=== PATIENT | female | born 1985 | race Caucasian/White ===

== ENCOUNTER 2023-06-27 13:18 | Emergency (ER) | payer SELFPAY ==
[2023-06-27 13:58] VITALS: BP 127/71; PULSE 90; RESP 18; TEMP 36.7; O2SAT 100
--- NOTE | 2023-06-27 14:04 | ED.EAR ---
HPI - Ear Problem General Chief complaint: Ear Stated complaint: right ear pain Time Seen by Provider: 06/27/23 14:04 Focused HPI: This is a 38 year old female that presents to the ER for right ear pain. Worsening over the last couple of days. Reports extensive history with infection in this ear and previous surgery. She does not have an ENT doctor currently. Denies fever, drainage. GENERAL: Well-appearing, well-nourished, and in no acute distress. HEAD: Normocephalic, atraumatic. ENT: Right cerumen impaction CHEST: Clear to auscultation. ?No respiratory distress. HEART: Regular rate and rhythm.? NEURO: ?Alert and oriented x3. Patient screened in triage and initial orders placed.? ?Additional care and disposition to be based upon?diagnostic testing and treatment. Related Data Allergies Allergy/AdvReac Type Severity Reaction Status Date / Time amoxicillin [From Augmentin] Allergy Chest Pain Verified 06/27/23 13:59 clavulanic acid Allergy Chest Pain Verified 06/27/23 13:59 [From Augmentin] Review of Systems Review of Systems: All systems reviewed & are unremarkable except as noted in HPI and below Constitutional: Constitutional: Denies fever(s) ENT: Comments: Reports otalgia. Denies drainage PMFSH Past Medical History Medical History (Updated 06/27/23 @ 15:49 by Ana Goode PA-C) No active medical problems Social History Social History (Updated 06/27/23 @ 15:49 by Ana Goode PA-C) Substance use: never Exam Const: General: healthy appearing and no acute distress HENMT: Ears: external ears normal, Abnormal EAC present (right) erythema and edema and TM abnormal (right) wth effusion and erythematous Course Course Emergency Course: Patient agrees with plan of care Vital Signs Vital signs: Vital Signs Temperature 98.1 F 06/27/23 13:58 Pulse Rate 90 06/27/23 13:58 Respiratory Rate 18 06/27/23 13:58 Blood Pressure 127/71 06/27/23 13:58 Pulse Oximetry 100 06/27/23 13:58 Temperature 98.1 F 06/27/23 13:58 Pulse Rate 90 06/27/23 13:58 Respiratory Rate 18 06/27/23 13:58 Blood Pressure 127/71 06/27/23 13:58 Pulse Oximetry 100 06/27/23 13:58 Medical Decision Making MDM Narrative Medical decision making narrative: Patient presents to the ER for right ear pain. She is afebrile and nontoxic appearing. Right external auditory canal is erythematous and swollen. Also with some fluid and redness of the TM. She will be started on oral as well as topical antibiotics and given follow up with ENT. She was given warnings to return to the ER Differential Diagnosis Differential Diagnosis: Otitis media, otitis externa Vital Signs Vital Signs: Vital Signs Temperature 98.1 F 06/27/23 13:58 Pulse Rate 90 06/27/23 13:58 Respiratory Rate 18 06/27/23 13:58 Blood Pressure 127/71 06/27/23 13:58 Pulse Oximetry 100 06/27/23 13:58 Temperature 98.1 F 06/27/23 13:58 Pulse Rate 90 06/27/23 13:58 Respiratory Rate 18 06/27/23 13:58 Blood Pressure 127/71 06/27/23 13:58 Pulse Oximetry 100 06/27/23 13:58 Critical Care Time Critical Care Time Critical Care Time: No Discharge Plan Discharge Clinical Impression: Otitis media Qualifiers: Otitis media type: unspecified Chronicity: acute Qualified Code(s): H66.90 - Otitis media, unspecified, unspecified ear Patient Disposition: Home, Self-Care Condition: Stable Instructions: Antibiotic Form, Ear Infection (GEN) Additional Instructions: Return to the ER if you experience fever, redness and swelling around your ear, or any other symptoms that are concerning to you Take oral antibiotics as prescribed. Instill topical antibiotics as prescribed Follow up with ENT Prescriptions: New cefdinir 300 mg capsule 300 mg PO Q12H 10 Days Qty: 20 0RF ofloxacin 0.3 % drops 10 drp RIGHT EAR DAILY 7 Days Qty: 10 0RF Follow-up/Referrals: Toan Duval MD [Ph
== END 2023-06-27 15:57 | disposition home or self-care (01) ==
PROVIDERS: Emergency Provider Physician Assistant
DX: H66.91 Otitis media, unspecified, right ear (principal)
CPT/HCPCS: 99283